=== PATIENT | male | born 2000 | race Hispanic/Latino ===

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

== ENCOUNTER 2018-03-23 01:26 | Emergency (ER) | payer SELFPAY ==
[2018-03-23] MEDS ORDERED: Morphine 4 MG/ML VIAL ONE (01:38)
[2018-03-23] MEDS ORDERED: Adacel (T-DAP) 0.5 ML VIAL ONE ×2 (01:39→01:52)
[2018-03-23] MEDS ORDERED: Ketorolac Tromethamine 30 MG/ML VIAL ONE (01:39)
[2018-03-23] MEDS ORDERED: CEFAZOLIN 1 GM VIAL ONE (01:39)
[2018-03-23 01:45] LABS: #Basophils 0.1 thou/uL (0.0-0.2); #Eosinphils 0.1 thou/uL (0.0-0.7); #Monocytes 0.6 thou/uL (0.11-0.59); #Neutrophils 4.8 thou/uL (1.40-6.50); %Eosinophils 0.8 % (0.0-10.0); %Lymphocytes 47.4 % (28.0-48.0); %Monocytes 5.5 % (0.0-4.0); %Neutrophils 45.4 % (31.0-61.0); Hemoglobin 17.9 g/dL (14.0-18.0); Mean Corpuscular HGB CONC 34.7 g/dL (32.0-36.0); Mean Corpuscular Hemoglobin 29.8 pg (25.0-35.0); Mean Corpuscular Volume 85.8 fL (78.0-98.0); Mean Platelet Volume 7.6 fL (7.4-10.4); Platelet Count 322 thou/uL (130-400); RBC Distribution Width 11.6 % (11.5-14.5); Red Blood Cell (RBC) Count 6.02 mill/uL (4.00-5.20); White Blood Cell (WBC) Count 10.6 thou/uL (4.8-10.8)
[2018-03-23 01:52] LABS: INR-International Normal Ratio 1.1; PTT 29.8 SEC (22.9-36.1); Prothrombin Time 14.1 SEC (12.0-14.7)
[2018-03-23 02:05] LABS: ALT (SGPT) 34 U/L (8-55); AST (SGOT) 30 U/L (5-34); Albumin 4.8 g/dL (3.5-5.0); Alkaline Phosphatase 114 U/L (Less than 750); Anion Gap 17 mmol/L (10-20); BUN (Urea Nitrogen) 11 mg/dL (8.9-20.6); Bilirubin, Total 0.3 mg/dL (0.2-1.2); Calc. Creatinine Clearance 0 mL/min (70-130); Calcium 9.9 mg/dL (7.8-10.44); Carbon Dioxide 19 mmol/L (22-29); Chloride 107 mmol/L (98-107); Estimated GFR-MDRD Greater than 90; Globulin 4.1 g/dL (2.4-3.5); Glucose 115 mg/dL (70-105); Potassium 3.8 mmol/L (3.5-5.1); Protein, Total 8.9 g/dL (6.0-8.3); Sodium 139 mmol/L (136-145)
[2018-03-23] MEDS ORDERED: Lidocaine 1% w/Epinephrine 1:100K 20 ML VIAL ONE (03:04)
[2018-03-23] MEDS ORDERED: Bacitracin Zinc 1 Packet ONE (06:10)
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
[2018-03-23] MEDS ORDERED: Iopamidol 370 76% 100 ML VIAL ONE (16:35)
== END 2018-03-23 06:59 | disposition home or self-care (01) ==
LOC: ERS 01:26
DX: S41.112A Laceration without foreign body of left upper arm, initial encounter (principal); S21.112A Laceration without foreign body of left front wall of thorax without penetration into thoracic cavity, initial encounter; W26.0XXA Contact with knife, initial encounter
CPT/HCPCS: 12001; 13121; 71045; 71260; 74177; 80053; 82150; 83690; 85025; 85610; 85730; 86850; 86900; 86901; 90471; 90715; 96361; 96374; 96375; J0690; J1885; J2001; J2270

== ENCOUNTER 2023-11-05 10:16 | Emergency (ER) | payer OTHER, SELFPAY ==
[2023-11-05] MEDS ORDERED: HYDROcodone/Acetaminophen 10/325 mg Tablet ONE (11:01)
[2023-11-05] MEDS ORDERED: Lidocaine/Transparent Dressing 1 EACH KIT ONE (11:02)
[2023-11-05] MEDS ORDERED: Boostrix 0.5 ML (Tdap) VIAL (>/=7 yrs of age) ONE (11:35)
[2023-11-05] MEDS ORDERED: Bacitracin 1 PK ONE (12:07)
== END 2023-11-05 12:16 ==
LOC: EEVIPCON 10:16 → ERS 10:16
DX: S01.01XA Laceration without foreign body of scalp, initial encounter (principal); S09.90XA Unspecified injury of head, initial encounter; V83.9XXA Unspecified occupant of special industrial vehicle injured in nontraffic accident, initial encounter; Y93.01 Activity, walking, marching and hiking; Z23 Encounter for immunization
CPT/HCPCS: 12002; 70450; 90471; 90715